=== PATIENT | female | born 1940 | race Two or more races ===

== ENCOUNTER 2018-07-10 15:07 | Inpatient (IN) | payer MEDICAID, MEDICARE ==
[~2018-07-10] VITALS: Ht 149.9 cm; Wt 54.7 kg
[2018-07-10] MEDS ORDERED: SODIUM CHLORIDE 0.9% 1,000 ML IV ONE (15:38)
[2018-07-10] MEDS ORDERED: ONDANSETRON HCL 4 MG/2 ML VIAL IV ONE (15:45)
[2018-07-10 17:04] LABS: Urine Bacteria NONE SEEN /hpf (None Seen); Urine Blood TRACE /uL (Negative); Urine Mucus FEW (None Seen); Urine Specific Gravity 1.017 (1.001-1.035); Urine WBC 2 /hpf (0 - 5)
[2018-07-10 17:25] LABS: Basophils # (auto) 0 uL; Basophils % (auto) 0.2 % (0.0-2.0); Eosinophils # (auto) 0 uL; Eosinophils % (auto) 0.1 % (0.0-7.0); Hematocrit 44.6 % (36.0-46.0); Hemoglobin 15.2 g/dL (12.2-16.2); Lymphocytes # (auto) 0.9 uL; Lymphocytes % (auto) 9.4 % (10.0-50.0); Mean Corpuscular Hemoglobin 30.6 pg (28.0-32.0); Mean Corpuscular Hgb Conc. 34.1 g/dL (32.0-36.0); Mean Corpuscular Volume 89.9 fL (80.0-100.0); Monocytes # (auto) 0.6 uL; Monocytes % (auto) 6.5 % (0.0-12.0); Neutrophils # (auto) 7.7 uL; Neutrophils % (auto) 83.8 % (37.0-80.0); Platelet Count (auto) 164 10^3/uL (140-450); Red Blood Cells 4.96 10^6/uL (4.0-5.20); Red Cell Distribution Width 13.4 % (11.8-14.3); White Blood Cell 9.3 10^3/uL (4.4-10.8)
[2018-07-10 17:39] LABS: Alanine Aminotransferase 23 U/L (13-56); Albumin 3.9 g/dL (3.4-5.0); Alkaline Phosphatase 100 U/L (45-117); Anion Gap 13 (5-15); Aspartate Aminotransferase 25 U/L (15-37); BUN/Creatinine Ratio 20.1; Bilirubin, Total 0.8 mg/dL (0.2-1.0); Blood Urea Nitrogen 32 mg/dL (7-18); Calcium 9.5 mg/dL (8.5-10.1); Carbon Dioxide 24 mmol/L (21-32); Chloride 101 mmol/L (98-107); GFR African American 40 mL/min; GFR Non-African American 33 mL/min; Glucose 297 mg/dL (74-106); Sodium 138 mmol/L (136-145); Total Protein 8.7 g/dL (6.4-8.2)
[2018-07-10] MEDS: SODIUM CHLORIDE 0.9% 1,000 ML IV SCH (18:27)
[2018-07-10] MEDS ORDERED: MORPHINE SULF INJ 2 MG/ML SYRINGE 1ML IV PRN ×2 (18:30)
[2018-07-10] MEDS ORDERED: LORazepam 2MG/ML-1ML VIAL IV PRN (18:30)
[2018-07-10] MEDS ORDERED: NITROGLYCERIN 0.4 MG SL TAB SL PRN (18:30)
[2018-07-10] MEDS ORDERED: MORPHINE SULFATE 4 MG/ML SYR/VIAL IV PRN ×2 (18:30)
[2018-07-10] MEDS ORDERED: DEXTROSE (50%) 50ML SYRG IV PRN (18:30)
[2018-07-10] MEDS ORDERED: PROMETHAZINE HCL 25 MG/ML 1ML IV PRN (18:30)
[2018-07-10] MEDS ORDERED: cefTRIAXone 1GM/10ml IVPUSH 10 ML IV ONE (18:30)
[2018-07-10] MEDS ORDERED: PANTOPRAZOLE 40 MG/10 ML VIAL IV ONE (18:30)
[2018-07-10] MEDS ORDERED: LABETALOL HCL 5 MG/ML ML 20ML VIAL IV PRN (18:45)
[2018-07-10] MEDS: metroNIDAZOLE 500MG/100ML 100 ML IV SCH (18:51)
[2018-07-10 19:10] LABS: Amylase 34 U/L (25-115); Lipase 75 U/L (73-393)
[2018-07-10 19:28] LABS: INR 0.99 (0.9-1.15); Partial Thromboplastin Time 25.2 sec (23.78-33.04); Prothrombin Time 10.6 sec (9.27-12.13)
[2018-07-11] VITALS (7 sets, daily range): BP systolic 110–180; BP diastolic 53–76
[2018-07-11] MEDS: metroNIDAZOLE 500MG/100ML 100 ML IV SCH ×4 (01:15→17:57)
[2018-07-11] MEDS: InsuLIN REG 1unit/0.01ml Soln (100units/ml) SC SCH ×4 (01:36→17:57)
[2018-07-11] MEDS ORDERED: ACAR50TA9 PO (03:24)
[2018-07-11] MEDS ORDERED: FURO40TA4 PO (03:24)
[2018-07-11] MEDS ORDERED: LOSA100T27 PO (03:24)
[2018-07-11] MEDS ORDERED: MONT10TA34 PO (03:24)
[2018-07-11] MEDS ORDERED: PROM25TA5 PO (03:24)
[2018-07-11] MEDS ORDERED: ALLO300T2 PO (03:24)
[2018-07-11] MEDS ORDERED: ALBUAER3 IN (03:24)
[2018-07-11] MEDS ORDERED: METO-169 PO (03:24)
[2018-07-11] MEDS: ACCU-CHEK COMFORT CURVE STRIP VI SCH ×4 (04:47→17:58)
[2018-07-11] MEDS: SODIUM CHLORIDE 0.9% 1,000 ML IV SCH (04:48)
[2018-07-11 06:36] LABS: Basophils # (auto) 0 uL; Basophils % (auto) 0.4 % (0.0-2.0); Eosinophils # (auto) 0.1 uL; Eosinophils % (auto) 1.2 % (0.0-7.0); Hematocrit 34.2 % (36.0-46.0); Hemoglobin 11.9 g/dL (12.2-16.2); Lymphocytes % (auto) 23.6 % (10.0-50.0); Mean Corpuscular Hemoglobin 31.3 pg (28.0-32.0); Mean Corpuscular Hgb Conc. 34.8 g/dL (32.0-36.0); Mean Corpuscular Volume 89.9 fL (80.0-100.0); Monocytes % (auto) 11.6 % (0.0-12.0); Neutrophils # (auto) 5.4 uL; Neutrophils % (auto) 63.2 % (37.0-80.0); Nucleated Red Blood Cells % 0.2 %; Platelet Count (auto) 146 10^3/uL (140-450); Red Blood Cells 3.81 10^6/uL (4.0-5.20); Red Cell Distribution Width 13.6 % (11.8-14.3); White Blood Cell 8.5 10^3/uL (4.4-10.8)
[2018-07-11 07:01] LABS: BUN/Creatinine Ratio 23.1; Bilirubin, Total 0.5 mg/dL (0.2-1.0); Calcium 8.1 mg/dL (8.5-10.1); Potassium 3.6 mmol/L (3.5-5.1); Total Protein 6.6 g/dL (6.4-8.2)
[2018-07-11] MEDS ORDERED: GASTROGRAFIN 120 ML SOL ONE (08:22)
[2018-07-11] MEDS: PANTOPRAZOLE 40 MG/10 ML VIAL IV SCH (10:02)
[2018-07-11] MEDS: cefTRIAXone 1GM/10ml IVPUSH 10 ML IV SCH (11:04)
[2018-07-11] MEDS ORDERED: METOPROLOL TARTRATE 1MG/1ML-5ML VIAL IV PRN (11:45)
[2018-07-11] MEDS: SOD CHL 0.45% 1,000 ML IV SCH ×2 (12:21→21:45)
[2018-07-11] MEDS: LABETALOL HCL 5 MG/ML ML 20ML VIAL IV PRN (21:50)
[2018-07-12] VITALS (8 sets, daily range): BP systolic 142–163; BP diastolic 64–84
[2018-07-12] MEDS: metroNIDAZOLE 500MG/100ML 100 ML IV SCH ×5 (01:16→23:39)
[2018-07-12] MEDS: ACCU-CHEK COMFORT CURVE STRIP VI SCH ×5 (01:17→23:38)
[2018-07-12] MEDS: InsuLIN REG 1unit/0.01ml Soln (100units/ml) SC SCH ×5 (06:02→23:39)
[2018-07-12 07:38] LABS: Basophils # (auto) 0 uL; Basophils % (auto) 0.5 % (0.0-2.0); Eosinophils # (auto) 0.1 uL; Eosinophils % (auto) 2.3 % (0.0-7.0); Hemoglobin 11.3 g/dL (12.2-16.2); Lymphocytes # (auto) 1.7 uL; Lymphocytes % (auto) 27.2 % (10.0-50.0); Mean Corpuscular Hemoglobin 31.4 pg (28.0-32.0); Mean Corpuscular Hgb Conc. 34.2 g/dL (32.0-36.0); Mean Corpuscular Volume 92.1 fL (80.0-100.0); Monocytes # (auto) 0.6 uL; Monocytes % (auto) 10.2 % (0.0-12.0); Neutrophils # (auto) 3.8 uL; Neutrophils % (auto) 59.8 % (37.0-80.0); Nucleated Red Blood Cells % 0.1 %; Platelet Count (auto) 126 10^3/uL (140-450); Red Blood Cells 3.59 10^6/uL (4.0-5.20); Red Cell Distribution Width 13.6 % (11.8-14.3); White Blood Cell 6.4 10^3/uL (4.4-10.8)
[2018-07-12 07:57] LABS: BUN/Creatinine Ratio 20.4; Calcium 7.9 mg/dL (8.5-10.1); Magnesium 2.4 mg/dL (1.6-2.6); Potassium 3.4 mmol/L (3.5-5.1)
[2018-07-12] MEDS: cefTRIAXone 1GM/10ml IVPUSH 10 ML IV SCH (08:57)
[2018-07-12] MEDS: PANTOPRAZOLE 40 MG/10 ML VIAL IV SCH (08:57)
[2018-07-12] MEDS: SOD CHL 0.45% 1,000 ML IV SCH ×2 (08:57→17:45)
[2018-07-12] MEDS ORDERED: POTASSIUM CHL 20 Meq TABLET PO ONE (12:45)
[2018-07-12] MEDS ORDERED: FUROSEMIDE 20 MG TAB PO ONE (13:00)
[2018-07-12] MEDS ORDERED: LOSARTAN POTASSIUM 50 MG TAB PO ONE (13:00)
[2018-07-12] MEDS ORDERED: METOPROLOL TARTRATE 50 MG TAB PO ONE (13:00)
[2018-07-12] MEDS: LABETALOL HCL 5 MG/ML ML 20ML VIAL IV PRN (16:55)
[2018-07-12] MEDS: FUROSEMIDE 20 MG TAB PO SCH (18:00)
[2018-07-13] MEDS: SOD CHL 0.45% 1,000 ML IV SCH ×2 (04:01→12:43)
[2018-07-13 05:32] VITALS: BP 157/92
[2018-07-13] MEDS: metroNIDAZOLE 500MG/100ML 100 ML IV SCH ×3 (05:37→17:56)
[2018-07-13] MEDS: InsuLIN REG 1unit/0.01ml Soln (100units/ml) SC SCH ×3 (05:38→17:56)
[2018-07-13] MEDS: FUROSEMIDE 20 MG TAB PO SCH ×2 (05:38→17:56)
[2018-07-13] MEDS: ACCU-CHEK COMFORT CURVE STRIP VI SCH ×3 (05:38→17:56)
[2018-07-13 06:41] LABS: Basophils # (auto) 0 uL; Basophils % (auto) 0.6 % (0.0-2.0); Eosinophils # (auto) 0.2 uL; Eosinophils % (auto) 3.8 % (0.0-7.0); Hematocrit 35.4 % (36.0-46.0); Hemoglobin 12.2 g/dL (12.2-16.2); Lymphocytes # (auto) 1.8 uL; Lymphocytes % (auto) 28.6 % (10.0-50.0); Mean Corpuscular Hgb Conc. 34.4 g/dL (32.0-36.0); Mean Corpuscular Volume 89.9 fL (80.0-100.0); Monocytes # (auto) 0.7 uL; Monocytes % (auto) 11.8 % (0.0-12.0); Neutrophils # (auto) 3.5 uL; Neutrophils % (auto) 55.2 % (37.0-80.0); Nucleated Red Blood Cells % 0.1 %; Platelet Count (auto) 130 10^3/uL (140-450); Red Blood Cells 3.93 10^6/uL (4.0-5.20); Red Cell Distribution Width 13.1 % (11.8-14.3); White Blood Cell 6.3 10^3/uL (4.4-10.8)
[2018-07-13 06:53] LABS: BUN/Creatinine Ratio 15.9; Calcium 7.9 mg/dL (8.5-10.1)
[2018-07-13 08:30] VITALS: BP 155/70
[2018-07-13] MEDS ORDERED: METOPROLOL TARTRATE 50 MG TAB PO SCH (10:00)
[2018-07-13] MEDS ORDERED: LOSARTAN POTASSIUM 50 MG TAB PO SCH (10:00)
[2018-07-13] MEDS: PANTOPRAZOLE 40 MG/10 ML VIAL IV SCH (10:03)
[2018-07-13] MEDS: cefTRIAXone 1GM/10ml IVPUSH 10 ML IV SCH (10:04)
[2018-07-13] MEDS: LABETALOL HCL 5 MG/ML ML 20ML VIAL IV PRN (10:35)
[2018-07-13 12:30] VITALS: BP 147/74
[2018-07-13] MEDS: POTASSIUM CHL 20MEQ/100ML 100 ML IV SCH ×2 (12:42→16:59)
[2018-07-13 13:42] VITALS: BP 101/58
[2018-07-13 16:26] VITALS: BP 138/76
== END 2018-07-13 19:56 | disposition home health service (06) | DRG 247 ==
LOC: ER 15:14 → TELE 15:15 → TELE-EAST 07-11 00:45
PROVIDERS: ADMIT Internal Medicine; ATTEND Internal Medicine
PROC: 0D9670Z Drainage of Stomach with Drainage Device, Via Natural or Artificial Opening (ICD-10-PCS; principal; 2018-07-11)
PROC: 0D9670Z Drainage of Stomach with Drainage Device, Via Natural or Artificial Opening (ICD-10-PCS; 2018-07-13)
DX: K56.600 Partial intestinal obstruction, unspecified as to cause (principal); N17.9 Acute kidney failure, unspecified; E88.09 Other disorders of plasma-protein metabolism, not elsewhere classified; E11.22 Type 2 diabetes mellitus with diabetic chronic kidney disease; N14.1 Nephropathy induced by other drugs, medicaments and biological substances; N18.3 Chronic kidney disease, stage 3 (moderate); I16.0 Hypertensive urgency; K57.30 Diverticulosis of large intestine without perforation or abscess without bleeding; T46.5X5A Adverse effect of other antihypertensive drugs, initial encounter; T50.1X5A Adverse effect of loop [high-ceiling] diuretics, initial encounter; Y92.89 Other specified places as the place of occurrence of the external cause; I12.9 Hypertensive chronic kidney disease with stage 1 through stage 4 chronic kidney disease, or unspecified chronic kidney disease; Z90.49 Acquired absence of other specified parts of digestive tract; Z88.0 Allergy status to penicillin; E86.0 Dehydration
CPT/HCPCS: 36415; 71045; 71046; 74021; 74176; 74250; 80048; 80053; 81001; 82150; 82962; 83036; 83690; 83735; 84484; 85025; 85610; 85652; 85730; 93005; 96374; 96375; C9113; J0696; J1815; J2405; J3480; J3490

== ENCOUNTER 2020-06-03 07:29 | Inpatient (IN) | payer MEDICAID ==
[~2020-06-03] VITALS: Ht 134.6 cm; Wt 51.7 kg
[~2020-06-03 07:29] MED LIST: ACAR50TA PO; ALBUAER3 IN; ALLO300T2 PO; FURO40TA4 PO; LOSA-39 PO; METO-169 PO; MONT10TA34 PO; PROM25TA5 PO
[2020-06-03] MEDS ORDERED: SODIUM CHLORIDE 0.9% 500 ML IVB ONE (08:31)
[2020-06-03] MEDS ORDERED: SODIUM CHLORIDE 0.9% 1,000 ML IV ONE (08:31)
[2020-06-03] MEDS ORDERED: PROMETHAZINE HCL 25 MG/ML 1ML IV PRN ×2 (08:45→16:15)
[2020-06-03] MEDS ORDERED: MORPHINE SULFATE 4 MG/ML SYR/VIAL IV ONE (08:45)
[2020-06-03 09:04] LABS: Urine Amorphous Crystal FEW /hpf (None Seen); Urine Bacteria FEW /hpf (None Seen); Urine Blood Negative /uL (Negative); Urine WBC 1 /hpf (0 - 5)
[2020-06-03 09:07] LABS: Basophils # (auto) 0 10 ^3/uL (0-0.2); Basophils % (auto) 0.4 % (0.0-2.0); Eosinophils # (auto) 0.1 10 ^3/uL (0-0.8); Eosinophils % (auto) 0.8 % (0.0-7.0); Hematocrit 40.6 % (36.0-46.0); Hemoglobin 13.6 g/dL (12.2-16.2); Lymphocytes # (auto) 0.8 10 ^3/uL (0.4-5.4); Mean Corpuscular Hemoglobin 31.7 pg (28.0-32.0); Mean Corpuscular Hgb Conc. 33.4 g/dL (32.0-36.0); Mean Corpuscular Volume 94.7 fL (80.0-100.0); Monocytes # (auto) 0.3 10 ^3/uL (0-1.3); Monocytes % (auto) 3.7 % (0.0-12.0); Neutrophils # (auto) 7.1 10 ^3/uL (1.6-8.6); Neutrophils % (auto) 85.1 % (37.0-80.0); Nucleated Red Blood Cells % 0.1 %; Platelet Count (auto) 181 10^3/uL (140-450); Red Blood Cells 4.29 10^6/uL (4.0-5.20); Red Cell Distribution Width 14.6 % (11.8-14.3); White Blood Cell 8.3 10^3/uL (4.4-10.8)
[2020-06-03 09:23] LABS: Alanine Aminotransferase 21 U/L (13-56); Albumin 3.8 g/dL (3.4-5.0); Anion Gap 7 (5-15); Aspartate Aminotransferase 21 U/L (15-37); BUN/Creatinine Ratio 21.5; Blood Urea Nitrogen 38 mg/dL (7-18); Calcium 9.6 mg/dL (8.5-10.1); Carbon Dioxide 22 mmol/L (21-32); Chloride 107 mmol/L (98-107); GFR African American 35 mL/min; GFR Non-African American 29 mL/min; Glucose 223 mg/dL (74-106); Lipase 106 U/L (73-393); Magnesium 2.7 mg/dL (1.6-2.6); Potassium 4.8 mmol/L (3.5-5.1); Sodium 136 mmol/L (136-145)
[2020-06-03 09:29] LABS: Alkaline Phosphatase 132 U/L (45-117); Bilirubin, Total 0.5 mg/dL (0.2-1.0)
[2020-06-03] MEDS ORDERED: GASTROGRAFIN 120 ML SOL ONE (13:23)
[2020-06-03] MEDS ORDERED: D5W/SOD CHL 0.45% 1,000 ML IV ONE (16:15)
[2020-06-03] MEDS ORDERED: hydrALAZINE HCL 20 MG/ML VL IV PRN (16:15)
[2020-06-03] MEDS ORDERED: MORPHINE SULF INJ 2 MG/ML SYRINGE 1ML IV PRN (16:15)
[2020-06-03] MEDS ORDERED: NITROGLYCERIN 0.4 MG SL TAB SL PRN (16:15)
[2020-06-03] MEDS ORDERED: DEXTROSE (50%) 50ML SYRG IV PRN (16:15)
[2020-06-03] MEDS ORDERED: ALBUTEROL SULF 2.5 MG/0.5ML(0.5%) NEB SOLN NEB PRN (16:15)
[2020-06-03] MEDS: InsuLIN REG 1unit/0.01ml Soln (100units/ml) SC SCH (18:00)
[2020-06-03] MEDS: ACCU-CHEK COMFORT CURVE STRIP VI SCH (18:00)
[2020-06-03 18:22] VITALS: BP 147/57
[2020-06-04] MEDS: ACCU-CHEK COMFORT CURVE STRIP VI SCH ×5 (05:57→23:19)
[2020-06-04] MEDS: InsuLIN REG 1unit/0.01ml Soln (100units/ml) SC SCH ×5 (05:58→23:19)
--- NOTE | 2020-06-04 08:00 | NUR ---
RT NOTE: WENT TO PTS ROOM TO ASSESS FOR PRN BREATHING, PT SLEEPING AT THIS TIME. NO S/S OF SOB. HR 65, RR 16, SPO2 93% ON RA. NO INDICATION FOR TX AT THIS TIME. WILL CONTINUE TO MONITOR PT.
[2020-06-04] MEDS: PANTOPRAZOLE 40 MG/10 ML VIAL INJ IV SCH (09:32)
[2020-06-04 11:36] LABS: BUN/Creatinine Ratio 21.8; Calcium 8.2 mg/dL (8.5-10.1); Potassium 3.6 mmol/L (3.5-5.1)
--- NOTE | 2020-06-04 14:20 | NUR ---
Pt Arrived on Unit Pt arrived on unit from ED via stretcher. Pt is a/ox4 with no s/s of distress or SOB. Pt is hungarian speaking only. Pt has NG tube, orders for LIS. Safety measures initiated with call light within reach, bed in lowest position and safety measures maintained. Will continue to monitor.
[2020-06-04 14:41] VITALS: BP 153/68
[2020-06-04 17:00] VITALS: BP 150/67
[2020-06-04 17:08] LABS: Basophils # (auto) 0 10 ^3/uL (0-0.2); Basophils % (auto) 0.6 % (0.0-2.0); Eosinophils # (auto) 0.1 10 ^3/uL (0-0.8); Eosinophils % (auto) 2.3 % (0.0-7.0); Hematocrit 38.7 % (36.0-46.0); Hemoglobin 12.8 g/dL (12.2-16.2); Lymphocytes # (auto) 1.4 10 ^3/uL (0.4-5.4); Lymphocytes % (auto) 24.9 % (10.0-50.0); Mean Corpuscular Hemoglobin 32.2 pg (28.0-32.0); Mean Corpuscular Volume 97.5 fL (80.0-100.0); Monocytes # (auto) 0.5 10 ^3/uL (0-1.3); Monocytes % (auto) 7.9 % (0.0-12.0); Neutrophils # (auto) 3.7 10 ^3/uL (1.6-8.6); Neutrophils % (auto) 64.3 % (37.0-80.0); Platelet Count (auto) 147 10^3/uL (140-450); Red Blood Cells 3.97 10^6/uL (4.0-5.20); Red Cell Distribution Width 15.1 % (11.8-14.3); White Blood Cell 5.8 10^3/uL (4.4-10.8)
[2020-06-04 22:00] VITALS: BP 165/69
[2020-06-05 05:00] VITALS: BP 158/73
[2020-06-05 05:28] LABS: Basophils # (auto) 0 10 ^3/uL (0-0.2); Basophils % (auto) 0.6 % (0.0-2.0); Eosinophils # (auto) 0.2 10 ^3/uL (0-0.8); Eosinophils % (auto) 3.5 % (0.0-7.0); Hemoglobin 12.2 g/dL (12.2-16.2); Lymphocytes # (auto) 1.4 10 ^3/uL (0.4-5.4); Lymphocytes % (auto) 23.9 % (10.0-50.0); Mean Corpuscular Hemoglobin 31.9 pg (28.0-32.0); Mean Corpuscular Hgb Conc. 33.8 g/dL (32.0-36.0); Mean Corpuscular Volume 94.3 fL (80.0-100.0); Monocytes # (auto) 0.5 10 ^3/uL (0-1.3); Monocytes % (auto) 8.9 % (0.0-12.0); Neutrophils # (auto) 3.8 10 ^3/uL (1.6-8.6); Neutrophils % (auto) 63.1 % (37.0-80.0); Nucleated Red Blood Cells % 0.1 %; Platelet Count (auto) 146 10^3/uL (140-450); Red Blood Cells 3.82 10^6/uL (4.0-5.20); Red Cell Distribution Width 14.4 % (11.8-14.3); White Blood Cell 5.9 10^3/uL (4.4-10.8)
[2020-06-05 05:50] LABS: BUN/Creatinine Ratio 18.5; Calcium 8.6 mg/dL (8.5-10.1); Potassium 3.8 mmol/L (3.5-5.1)
[2020-06-05] MEDS: InsuLIN REG 1unit/0.01ml Soln (100units/ml) SC SCH ×4 (06:00→23:56)
[2020-06-05] MEDS: ACCU-CHEK COMFORT CURVE STRIP VI SCH ×4 (06:35→23:55)
--- NOTE | 2020-06-05 07:05 | NUR ---
Respiratory note: PRN MED NEB TX NOT INDICATED AT THIS TIME. HR 76, RR 14, SPO2 96% ON RA, BS CLEAR AND DIMINISHED.NO SIGNS OR SYMPTOMS OF RESPIRATORY DISTRESS NOTED.PT IS SWEDISH SPEAKING, PT INFORMED TO HIT CALL BUTTON IF FEELING SOB OR WHEEZING.
--- NOTE | 2020-06-05 07:07 | NUR ---
OPENING SHIFT NOTE Assumed care of patient from retail shift manager RN. Patient is alert and oriented x4, no signs of distress noted. Patient was instructed on the plan of care and verbalized understanding. Patient has an NG tube placed to low intermittent suctioning. Bedside commode noted. Bed is locked, in the lowest position, side rails up x2 and call light is in reach. She was encouraged to call for assistance as needed.
--- NOTE | 2020-06-05 07:56 | NUR ---
MEENA AT BEDSIDE Updated on the patient status, plan of care discussed with the patient and she verbalized understanding. No new orders received. Per abd xray will be ordered.
[2020-06-05 09:00] VITALS: BP 148/64
[2020-06-05 09:50] LABS: Free T3 2.5 pg/mL (2.3-4.2); Free T4 (Free Thyroxine) 1.39 ng/dL (0.89-1.76)
[2020-06-05] MEDS: PANTOPRAZOLE 40 MG/10 ML VIAL INJ IV SCH (10:09)
--- NOTE | 2020-06-05 10:09 | NUR ---
PATIENT COMPLAINING OF FEELING HUNGRY AND WANTING NG TUBE OUT She was re-educated on the plan of care and verbalized understanding.
[2020-06-05 12:37] VITALS: BP 160/68
--- NOTE | 2020-06-05 13:13 | NUR ---
CALL FROM FAMILY call from patient's daughter Sera Guerra. After verification of password she was updated on the plan of care and verbalized understanding, all questions answered.
--- NOTE | 2020-06-05 13:21 | NUR ---
Nutrition Assessment Notes Please refer to link for full assessment notes. Est Energy needs: 2608-7531 kcals (23-25 kcal/kgBW) Est Protein needs: 42-47 gms/day (0.8-0.9 gm/kgBW) d/t pt with Stg 3 CKF Will continue to monitor and reassess prn. Addendum: 06/05/20 at [address] Amended: Links added.
--- NOTE | 2020-06-05 14:42 | NUR ---
TERI AT BEDSIDE Updated on the patient status, plan of care discussed with the patient. New orders for clear liquid diet and DC NG tube if it is ok with surgeon. Will page Jagdeep Iraheta
--- NOTE | 2020-06-05 14:48 | NUR ---
MIGUEL BURR PAGED regarding clearance to dc ng tube and start the patient on a clear liquid diet, message left, awaiting call back.
--- NOTE | 2020-06-05 15:50 | NUR ---
CALLED MEENA Regarding orders for DC of NG tube. Patient output from NG tube is 25ml. New orders to DC NG tube and start patient on clear liquid diet. Orders read back and verified.
--- NOTE | 2020-06-05 16:02 | NUR ---
NGT removal NGT removed per MD/PRINTING ROLLER POLISHER order following explanation and instruction to patient. Patient verbalized understanding prior to removal. Patient tolerated well.
[2020-06-05 17:00] VITALS: BP 154/73
[2020-06-05 22:00] VITALS: BP 103/87
[2020-06-06 05:00] VITALS: BP 117/45
[2020-06-06] MEDS: InsuLIN REG 1unit/0.01ml Soln (100units/ml) SC SCH ×2 (06:00→11:41)
[2020-06-06] MEDS: ACCU-CHEK COMFORT CURVE STRIP VI SCH ×2 (06:27→11:36)
[2020-06-06 06:56] LABS: Basophils # (auto) 0 10 ^3/uL (0-0.2); Basophils % (auto) 0.6 % (0.0-2.0); Eosinophils # (auto) 0.2 10 ^3/uL (0-0.8); Eosinophils % (auto) 4.2 % (0.0-7.0); Hematocrit 35.8 % (36.0-46.0); Lymphocytes # (auto) 1.4 10 ^3/uL (0.4-5.4); Lymphocytes % (auto) 25.2 % (10.0-50.0); Mean Corpuscular Hemoglobin 31.6 pg (28.0-32.0); Mean Corpuscular Hgb Conc. 33.4 g/dL (32.0-36.0); Mean Corpuscular Volume 94.7 fL (80.0-100.0); Monocytes # (auto) 0.6 10 ^3/uL (0-1.3); Monocytes % (auto) 11.1 % (0.0-12.0); Neutrophils # (auto) 3.2 10 ^3/uL (1.6-8.6); Neutrophils % (auto) 58.9 % (37.0-80.0); Nucleated Red Blood Cells % 0.1 %; Platelet Count (auto) 154 10^3/uL (140-450); Red Blood Cells 3.78 10^6/uL (4.0-5.20); Red Cell Distribution Width 14.2 % (11.8-14.3); White Blood Cell 5.5 10^3/uL (4.4-10.8)
--- NOTE | 2020-06-06 07:00 | NUR ---
OPENING SHIFT NOTE Assumed care of patient from bicycle repairman RN. Patient is alert and oriented x4, no signs of distress noted. Patient was instructed on the plan of care and verbalized understanding. Bedside commode noted. Bed is locked, in the lowest position, side rails up x2 and call light is in reach. She was encouraged to call for assistance as needed.
[2020-06-06 07:12] LABS: Calcium 8.5 mg/dL (8.5-10.1); Potassium 3.8 mmol/L (3.5-5.1)
--- NOTE | 2020-06-06 07:12 | NUR ---
MEENA AT BEDSIDE updated on patient status. Plan of care discussed with the patient. Per MD advance diet as tolerated and patient is cleared from surgical for discharge.
[2020-06-06 07:15] LABS: BUN/Creatinine Ratio 16.4
[2020-06-06 08:00] VITALS: BP 145/59
[2020-06-06] MEDS: PANTOPRAZOLE 40 MG/10 ML VIAL INJ IV SCH (09:36)
[2020-06-06 12:00] VITALS: BP 149/64
--- NOTE | 2020-06-06 12:50 | NUR ---
KYLE AT BEDSIDE Updated on the patient status, plan of care discussed with patient and she verbalized understanding. Per MD patient is cleared for DC
--- NOTE | 2020-06-06 13:01 | NUR ---
CALL FROM KEN updated on the patient status, per MD patient is going to be discharged pending clearance from , will page Kathleen for clearance. No other orders received.
--- NOTE | 2020-06-06 13:03 | NUR ---
MESSAGE LEFT FOR TERI regarding patient being cleared for DC, awaiting call back.
--- NOTE | 2020-06-06 15:00 | NUR ---
assessment Patient is a 79 year old female who is Guamanian speaking. Per patients granddaparish Whitehead prior to admission patient lived home with family and needed assistance. Patient has a cane, shower chair, and bedside commode for home use. Patients PCP is Dr Davalos. Per Charley all family helps with patients care as needed. Patient may benefit from home health PT and safety on discharge. Patient may also benefit from fww on discharge. I informed Charley I will continue to monitor and follow up as appropriate. Charley verbalized understanding and agreed to discharge plan home. Addendum: 06/06/20 at 1503 by Tg BUCKLEY Amended: Links added.
[2020-06-06 15:50] VITALS: BP 142/67
--- NOTE | 2020-06-06 17:39 | NUR ---
DISCHARGE Discharge instructions given as ordered. Encourage to follow up with PMD as instructed. All questions and concerns addressed. Patient verbalized understanding. Medication reconciliation form completed and copy given to patient. IV removed with catheter intact, pressure dressing applied, Telemetry unit returned to ICU. Patient taken to vehicle via wheelchair with all personal belongings, accompanied by staff. No distress noted at time of departure.
== END 2020-06-06 17:39 | disposition home or self-care (01) | DRG 247 ==
LOC: ER 07:29 → EDUNIT# 07:29 → EDBD 07:29 → TELE 07:30 → TELE-CENTR 06-04 14:24
PROVIDERS: ADMIT Internal Medicine; ATTEND Internal Medicine
DX: K56.600 Partial intestinal obstruction, unspecified as to cause (principal); E11.21 Type 2 diabetes mellitus with diabetic nephropathy; J39.8 Other specified diseases of upper respiratory tract; E11.22 Type 2 diabetes mellitus with diabetic chronic kidney disease; E11.42 Type 2 diabetes mellitus with diabetic polyneuropathy; E04.1 Nontoxic single thyroid nodule; I12.9 Hypertensive chronic kidney disease with stage 1 through stage 4 chronic kidney disease, or unspecified chronic kidney disease; K83.8 Other specified diseases of biliary tract; M10.9 Gout, unspecified; N18.3 Chronic kidney disease, stage 3 (moderate); Z83.3 Family history of diabetes mellitus; Z90.49 Acquired absence of other specified parts of digestive tract; Z88.0 Allergy status to penicillin; Z88.1 Allergy status to other antibiotic agents; Z88.8 Allergy status to other drugs, medicaments and biological substances
CPT/HCPCS: 36415; 71045; 71250; 74018; 74176; 74250; 76536; 80048; 80053; 81001; 82962; 83036; 83690; 83735; 84439; 84443; 84481; 84484; 85025; 86376; 86800; 86850; 86900; 86901; 93005; 96361; 96374; C9113; G0378; J1815